=== PATIENT | male | born 1945 | race Caucasian/White ===

== ENCOUNTER 2018-01-02 09:16 | Emergency (ER) | payer OTHER ==
[~2018-01-02] VITALS: Ht 175.3 cm; Wt 73.6 kg
[~2018-01-02 09:16] MED LIST: CADUET PO; DECADRON4 MG PO; HYDROCHLOROTH12.5 M3 PO; LO-DOSE ASPIRIN81 M1 PO; LOPRESSOR50 MG PO; PRILOSEC20 MG PO; SPIRIVA RESPIMAT4 G1 IH
[2018-01-02 10:14] LABS: HEMATOCRIT 28.4 % (38.0-50.0); HEMOGLOBIN 9.7 G/DL (12.5-16.6); MCH 33.8 PG (29.0-34.0); MCHC 34.2 G/DL (30.0-36.0); PLATELET COUNT 108 K/uL (156-360); RBC DIS.WIDTH-CV 15.6 % (11.8-14.6); RBC DIS.WIDTH-SD 55.5 % (39-53); RED BLOOD COUNT 2.87 M/uL (4.00-5.50); WHITE BLOOD COUNT 10.3 K/uL (4.1-10.2)
[2018-01-02 10:23] LABS: CHLORIDE 105 mEq/L (99-109); POTASSIUM 3.5 mEq/L (3.7-5.4); SODIUM 140 mEq/L (136-147)
[2018-01-02 10:25] LABS: GLUCOSE 136 mg/dL (70-99)
[2018-01-02 10:29] LABS: GFR ESTIMATE (CALCULATED) > 59 mL/min/ (58.99-99999)
[2018-01-02 10:30] LABS: UREA NITROGEN (BUN) 25 mg/dL (9-23)
[2018-01-02 10:35] LABS: TROP-I INTERPRETATION NEGATIVE; TROPONIN-I 0.01 ng/mL (0.0-0.30)
[2018-01-02] MEDS ORDERED: ULTRAM50 MG PO (10:41)
[2018-01-02 11:10] VITALS: BP 99/57
== END 2018-01-02 11:30 | disposition home or self-care (01) ==
LOC: EME 09:16
PROVIDERS: Nurse Practitioner Family
DX: S46.911A Strain of unspecified muscle, fascia and tendon at shoulder and upper arm level, right arm, initial encounter (principal); X58.XXXA Exposure to other specified factors, initial encounter; E78.5 Hyperlipidemia, unspecified; I10 Essential (primary) hypertension; Z79.82 Long term (current) use of aspirin; F17.200 Nicotine dependence, unspecified, uncomplicated
CPT/HCPCS: 73030; 80048; 84484; 85027; 93005; 99281; 99284

== ENCOUNTER 2018-01-26 16:47 | Emergency (ER) | payer OTHER ==
[~2018-01-26] VITALS: Ht 170.2 cm; Wt 72.8 kg
[~2018-01-26 16:47] MED LIST changes: +CLONAZEPAM1 MG PO; +DECADRON4 M1 PO; -DECADRON4 MG PO; +ULTRAM50 MG PO
[2018-01-26 18:30] LABS: HEMATOCRIT 31.5 % (38.0-50.0); MCH 33.1 PG (29.0-34.0); NRBC (%) 0.7 /100 WBC (0-0); RBC DIS.WIDTH-CV 17.2 % (11.8-14.6); WHITE BLOOD COUNT 5.8 K/uL (4.1-10.2)
[2018-01-26 18:33] LABS: HEMOGLOBIN 10.7 G/DL (12.5-16.6); MCV 97.5 FL (86-99); PLATELET COUNT 123 K/uL (156-360); RED BLOOD COUNT 3.23 M/uL (4.00-5.50)
[2018-01-26 18:42] LABS: ALBUMIN 3.9 g/dL (3.2-4.8); CHLORIDE 104 mEq/L (99-109); POTASSIUM 4.5 mEq/L (3.7-5.4); SODIUM 138 mEq/L (136-147)
[2018-01-26 18:44] LABS: GLUCOSE 97 mg/dL (70-99)
[2018-01-26 18:45] LABS: TOTAL PROTEIN 6.3 g/dL (6.4-8.3)
[2018-01-26 18:46] LABS: TOTAL BILIRUBIN 0.6 mg/dL (0.0-1.0)
[2018-01-26 18:48] LABS: ALKALINE PHOSPHATASE 77 IU/L (3-129); BASOPHIL (%) 0.3 % (0-1); CREATININE 0.9 mg/dL (0.6-1.3); EOSINOPHIL (%) 0.2 % (0-5); GFR ESTIMATE (CALCULATED) > 59 mL/min/ (58.99-99999); IMMATURE GRANULOCYTE (%) 4.8 % (0.0-0.7); LYMPHOCYTE (%) 31.5 % (15-42); LYMPHOCYTE COUNT 1.8 K/uL (1.0-2.8); MONOCYTE (%) 8.1 % (3-12); MONOCYTE COUNT 0.5 K/uL (0-0.8); NEUTROPHIL (%) 55.1 % (45-76); NEUTROPHIL COUNT 3.2 K/uL (1.8-6.4)
[2018-01-26 18:49] LABS: UREA NITROGEN (BUN) 18 mg/dL (9-23)
[2018-01-26 18:50] LABS: AST (GOT) 19 IU/L (2-34)
[2018-01-26 18:51] LABS: ALT (GPT) 19 IU/L (3-49)
[2018-01-26 21:58] LABS: THYROTROPIN (TSH) 1.6 MIU/L (0.4-5.5)
[2018-01-26 22:12] VITALS: BP 117/60
[2018-01-26 22:23] LABS: APPEARANCE CLEAR ((CLEAR)); BILIRUBIN NEGATIVE; BLOOD NEGATIVE; COLOR YELLOW ((YELLOW)); GLUCOSE (STRIP) NEGATIVE; KETONES NEGATIVE; LEUKOCYTES NEGATIVE; NITRITE NEGATIVE; PROTEIN (STRIP) NEGATIVE; SPECIFIC GRAVITY > 1.060 (1.000-1.030); UCUL ADDED? NO; UROBILINOGEN 0.2 MG/DL (0.2-1.0)
== END 2018-01-26 22:14 | disposition home or self-care (01) ==
LOC: EME 16:47
PROVIDERS: Orthopaedic Surgery; Physician Assistant
DX: R53.1 Weakness (principal); C79.31 Secondary malignant neoplasm of brain; C34.90 Malignant neoplasm of unspecified part of unspecified bronchus or lung; J44.9 Chronic obstructive pulmonary disease, unspecified; I10 Essential (primary) hypertension; E78.5 Hyperlipidemia, unspecified; Z79.899 Other long term (current) drug therapy; F17.200 Nicotine dependence, unspecified, uncomplicated
CPT/HCPCS: 71260; 74177; 80053; 81003; 83605; 84443; 85025; 85027; 87040; 87502; 87801; 93005; 99281; 99285; J7030

== ENCOUNTER 2018-04-09 18:29 | Inpatient (IN) | payer OTHER ==
[~2018-04-09] VITALS: Ht 172.7 cm; Wt 74.4 kg
[~2018-04-09 18:29] MED LIST changes: -LOPRESSOR50 MG PO; -SPIRIVA RESPIMAT4 G1 IH; +SPIRIVA1 INHALATI IH; +TOPROL XL50 MG PO
[2018-04-09 20:03] LABS: BASOPHIL (%) 0.1 % (0-1); EOSINOPHIL (%) 0.1 % (0-5); HEMATOCRIT 36.4 % (38.0-50.0); HEMOGLOBIN 12.7 G/DL (12.5-16.6); IMMATURE GRANULOCYTE (%) 0.7 % (0.0-0.7); LYMPHOCYTE (%) 13.3 % (15-42); LYMPHOCYTE COUNT 1.2 K/uL (1.0-2.8); MCHC 34.9 G/DL (30.0-36.0); MCV 97.6 FL (86-99); MONOCYTE (%) 6.6 % (3-12); MONOCYTE COUNT 0.6 K/uL (0-0.8); NEUTROPHIL (%) 79.2 % (45-76); NEUTROPHIL COUNT 7.3 K/uL (1.8-6.4); PLATELET COUNT 132 K/uL (156-360); RED BLOOD COUNT 3.73 M/uL (4.00-5.50); WHITE BLOOD COUNT 9.2 K/uL (4.1-10.2)
[2018-04-09 20:12] LABS: CHLORIDE 104 mEq/L (99-109); POTASSIUM 4.4 mEq/L (3.7-5.4); SODIUM 139 mEq/L (136-147)
[2018-04-09 20:14] LABS: GLUCOSE 130 mg/dL (70-99)
[2018-04-09 20:18] LABS: GFR ESTIMATE (CALCULATED) > 59 mL/min/ (58.99-99999); UREA NITROGEN (BUN) 29 mg/dL (9-23)
[2018-04-09] MEDS ORDERED: NORCO 5/3251 TABLET PO (21:45)
[2018-04-09] MEDS ORDERED: DRONABINOL5 MG PO (22:00)
[2018-04-09] MEDS ORDERED: TRAMADOL HCL50 MG PO (22:00)
[2018-04-09] MEDS ORDERED: PREDNISONE10 MG PO (22:00)
[2018-04-10 02:31] VITALS: BP 162/70
[2018-04-10 04:46] LABS: APPEARANCE CLEAR ((CLEAR)); BILIRUBIN NEGATIVE; BLOOD NEGATIVE; COLOR YELLOW ((YELLOW)); GLUCOSE (STRIP) NEGATIVE; KETONES NEGATIVE; LEUKOCYTES NEGATIVE; NITRITE NEGATIVE; PROTEIN (STRIP) NEGATIVE; SPECIFIC GRAVITY 1.016 (1.000-1.030); UCUL ADDED? NO; UROBILINOGEN 0.2 MG/DL (0.2-1.0)
[2018-04-10 07:27] VITALS: BP 148/65
[2018-04-10 11:25] VITALS: BP 141/67
[2018-04-10 16:13] VITALS: BP 160/74
[2018-04-10 21:45] VITALS: BP 140/62
[2018-04-11 00:47] VITALS: BP 140/66
[2018-04-11 06:21] LABS: HEMOGLOBIN 14.1 G/DL (12.5-16.6); MCH 33.5 PG (29.0-34.0); MCHC 34.4 G/DL (30.0-36.0); MCV 97.4 FL (86-99); PLATELET COUNT 153 K/uL (156-360); RBC DIS.WIDTH-SD 45.9 % (39-53); RED BLOOD COUNT 4.21 M/uL (4.00-5.50); WHITE BLOOD COUNT 9.2 K/uL (4.1-10.2)
[2018-04-11 06:55] VITALS: BP 156/72
[2018-04-11 07:13] LABS: CHLORIDE 101 MEQ/L (99-109); GFR ESTIMATE (CALCULATED) > 59 mL/min/ (58.99-99999); GLUCOSE 136 mg/dL (70-99); POTASSIUM 3.6 MEQ/L (3.7-5.4); SODIUM 140 MEQ/L (136-147); UREA NITROGEN (BUN) 30 mg/dL (9-23)
[2018-04-11 20:51] VITALS: BP 142/52
[2018-04-12 02:06] VITALS: BP 140/50
[2018-04-12 07:25] VITALS: BP 153/72
[2018-04-12 16:09] VITALS: BP 150/70
[2018-04-13 00:17] VITALS: BP 140/64
[2018-04-13 06:29] LABS: BASOPHIL (%) 0.2 % (0-1); EOSINOPHIL (%) 0 % (0-5); HEMATOCRIT 38.3 % (38.0-50.0); HEMOGLOBIN 13.3 G/DL (12.5-16.6); IMMATURE GRANULOCYTE (%) 0.8 % (0.0-0.7); LYMPHOCYTE (%) 13.8 % (15-42); LYMPHOCYTE COUNT 0.9 K/uL (1.0-2.8); MCH 33.7 PG (29.0-34.0); MCHC 34.7 G/DL (30.0-36.0); MONOCYTE (%) 6.8 % (3-12); MONOCYTE COUNT 0.4 K/uL (0-0.8); NEUTROPHIL (%) 78.4 % (45-76); PLATELET COUNT 134 K/uL (156-360); RBC DIS.WIDTH-CV 12.9 % (11.8-14.6); RBC DIS.WIDTH-SD 46.5 % (39-53); RED BLOOD COUNT 3.95 M/uL (4.00-5.50); WHITE BLOOD COUNT 6.4 K/uL (4.1-10.2)
[2018-04-13 06:49] LABS: CHLORIDE 101 MEQ/L (99-109); GFR ESTIMATE (CALCULATED) > 59 mL/min/ (58.99-99999); GLUCOSE 158 mg/dL (70-99); POTASSIUM 4.2 MEQ/L (3.7-5.4); SODIUM 137 MEQ/L (136-147); UREA NITROGEN (BUN) 37 mg/dL (9-23)
[2018-04-13 07:19] VITALS: BP 152/77
[2018-04-13 16:26] VITALS: BP 143/66
[2018-04-14 00:56] VITALS: BP 120/60
[2018-04-14 06:16] LABS: BASOPHIL (%) 0.3 % (0-1); EOSINOPHIL (%) 0 % (0-5); HEMATOCRIT 40.8 % (38.0-50.0); HEMOGLOBIN 14.3 G/DL (12.5-16.6); IMMATURE GRANULOCYTE (%) 0.7 % (0.0-0.7); LYMPHOCYTE (%) 12.9 % (15-42); LYMPHOCYTE COUNT 0.8 K/uL (1.0-2.8); MCH 33.6 PG (29.0-34.0); MCV 95.8 FL (86-99); MONOCYTE (%) 6.5 % (3-12); MONOCYTE COUNT 0.4 K/uL (0-0.8); NEUTROPHIL (%) 79.6 % (45-76); NEUTROPHIL COUNT 4.6 K/uL (1.8-6.4); PLATELET COUNT 125 K/uL (156-360); RBC DIS.WIDTH-CV 12.9 % (11.8-14.6); RBC DIS.WIDTH-SD 45.5 % (39-53); RED BLOOD COUNT 4.26 M/uL (4.00-5.50); WHITE BLOOD COUNT 5.8 K/uL (4.1-10.2)
[2018-04-14 06:49] LABS: CHLORIDE 103 MEQ/L (99-109); GFR ESTIMATE (CALCULATED) > 59 mL/min/ (58.99-99999); GLUCOSE 148 mg/dL (70-99); POTASSIUM 4.4 MEQ/L (3.7-5.4); SODIUM 135 MEQ/L (136-147); UREA NITROGEN (BUN) 33 mg/dL (9-23)
[2018-04-14 07:51] VITALS: BP 137/66
[2018-04-14 15:00] VITALS: BP 141/84
[2018-04-14 22:53] VITALS: BP 114/61
[2018-04-15 06:26] LABS: CHLORIDE 103 MEQ/L (99-109); CREATININE 0.9 MG/DL (0.6-1.3); GFR ESTIMATE (CALCULATED) > 59 mL/min/ (58.99-99999); GLUCOSE 130 mg/dL (70-99); POTASSIUM 4.8 MEQ/L (3.7-5.4); SODIUM 138 MEQ/L (136-147); UREA NITROGEN (BUN) 34 mg/dL (9-23)
[2018-04-15 07:00] VITALS: BP 130/66
[2018-04-15 15:15] VITALS: BP 132/65
[2018-04-15 23:54] VITALS: BP 106/54
[2018-04-16 06:39] LABS: BASOPHIL (%) 0.1 % (0-1); EOSINOPHIL (%) 0.1 % (0-5); HEMATOCRIT 38.4 % (38.0-50.0); IMMATURE GRANULOCYTE (%) 1.1 % (0.0-0.7); LYMPHOCYTE (%) 13.2 % (15-42); MCHC 33.9 G/DL (30.0-36.0); MCV 97.5 FL (86-99); MONOCYTE (%) 7.2 % (3-12); MONOCYTE COUNT 0.6 K/uL (0-0.8); NEUTROPHIL (%) 78.3 % (45-76); NEUTROPHIL COUNT 6.1 K/uL (1.8-6.4); PLATELET COUNT 135 K/uL (156-360); RBC DIS.WIDTH-CV 12.8 % (11.8-14.6); RBC DIS.WIDTH-SD 45.6 % (39-53); RED BLOOD COUNT 3.94 M/uL (4.00-5.50); WHITE BLOOD COUNT 7.8 K/uL (4.1-10.2)
[2018-04-16 07:03] LABS: CHLORIDE 102 MEQ/L (99-109); CREATININE 0.9 MG/DL (0.6-1.3); GFR ESTIMATE (CALCULATED) > 59 mL/min/ (58.99-99999); GLUCOSE 159 mg/dL (70-99); POTASSIUM 4.2 MEQ/L (3.7-5.4); SODIUM 138 MEQ/L (136-147); UREA NITROGEN (BUN) 37 mg/dL (9-23)
[2018-04-16 07:10] VITALS: BP 121/59
[2018-04-16] MEDS ORDERED: METOPROLOL SUCC25 MG PO (09:45)
[2018-04-16] MEDS ORDERED: FAMOTIDINE40 MG PO (09:45)
[2018-04-16] MEDS ORDERED: DOCUSATE SODIU100 MG PO (09:45)
[2018-04-16] MEDS ORDERED: POLYETHYLENE GL17 GM PO (09:45)
[2018-04-16] MEDS ORDERED: DEXAMETHASONE4 MG PO (09:45)
[2018-04-16 16:09] VITALS: BP 130/63
[2018-04-16 23:23] VITALS: BP 148/67
[2018-04-17 07:11] VITALS: BP 108/62
[2018-04-17 07:16] VITALS: BP 107/58
[2018-04-17 15:33] VITALS: BP 134/60
[2018-04-17 20:19] VITALS: BP 153/61
[2018-04-18 00:26] VITALS: BP 123/58
[2018-04-18 07:05] VITALS: BP 122/61
[2018-04-18 15:00] VITALS: BP 140/67
== END 2018-04-18 18:05 | DRG 542 ==
LOC: EME 18:29 → EDOF 04-10 00:38 → 5EAST 04-10 00:38 → ENRESERV 04-10 00:46 → 5EAST 04-10 02:18 → EDPENDDISTM 04-18 → EDPENDDISDT 04-18 → ENPENDDIS 04-18 → 5EAST 04-18 18:05
PROVIDERS: Emergency Medicine; Hospitalist; Internal Medicine
PROC: DP0C3ZZ Beam Radiation of Other Bone using Electrons (ICD-10-PCS; principal; 2018-04-11)
DX: C79.51 Secondary malignant neoplasm of bone (principal); G95.81 Conus medullaris syndrome; G89.3 Neoplasm related pain (acute) (chronic); C79.31 Secondary malignant neoplasm of brain; G93.6 Cerebral edema; C34.11 Malignant neoplasm of upper lobe, right bronchus or lung; I10 Essential (primary) hypertension; E78.5 Hyperlipidemia, unspecified; J44.9 Chronic obstructive pulmonary disease, unspecified; K59.00 Constipation, unspecified; Z87.891 Personal history of nicotine dependence
CPT/HCPCS: 72100; 72158; 77295; 77300; 77331; 77334; 77338; 77412; 77417; 80048; 81003; 85025; 85027; 94640; 94640 76; 97530 GP; 99281; 99285; J1100; J1644; J2270; J2405; J7040; J8540; Q0167